=== PATIENT | female | born 1990 | race Two or more races ===

== ENCOUNTER 2016-09-21 18:03 | Emergency (ER) | payer OTHER ==
--- NOTE | ~2016-09-21 | CT16 ---
[facility] A Service of [facility] RADIOLOGY TEXT RESULTS PATIENT: EDMUND RUSS LOCATION: [facility] : [birth year] UNIT #: [id number] AGE: [address]: Cristian Kwok MD SEX: F ORDER DR: [id number] [place] [id number] [facility]. [place], [place] [address] [id number] E MR#: [id number] Acc #: [id number] NAME: EDMUND RUSS : 1990 SEX: F STUDY DATE/TIME: 09/21/2016 22:45 UNIT: [facility] ROOM: STUDY DESCRIPTION: CT Angio Chest for PE Attending Physician: Cristian Kwok M.D. Ordering Physician: Amando Landers A.P.R.N. Primary Care Physician: Radha Salmon MEDICAL IMAGING REPORT This report is preliminary unless electronic signature is present EXAM CTA chest PE protocol INDICATION Shortness of air and chest pain for the past 2 days. PROCEDURE Contrast-enhanced CTA of the chest attention on opacification of pulmonary arteries. Coronal 3-D MIP sagittal reformatted images reconstructed submitted. This CT exam was performed with one or more of the following radiation dose reduction techniques: automatic exposure control, adjustment of mA and/or kV according to patient size, and iterative reconstruction. COMPARISON None. FINDINGS No evidence for pulmonary embolus or acute aortic injury. No adenopathy. No acute findings in the included upper abdomen. No dense consolidation. There are a few small areas of ground-glass opacity in the lung apices. An index region at the right apex measures 11 mm. No pleural fluid or pneumothorax. No aggressive-appearing bone lesion. IMPRESSION 1. No evidence for pulmonary embolus. 2. A few small areas of ground-glass opacity in both lung apices probably representing infectious or inflammatory change. Consider attention on a short-interval followup after appropriate therapy to document improvement. [facility] A Service of [facility] RADIOLOGY TEXT RESULTS PATIENT: EDMUND RUSS LOCATION: [facility] : [birth year] UNIT #: [id number] AGE: [address]: Cristian Kwok MD SEX: F ORDER DR: Dictated by... Melecio Pretty M.D. THIS IS AN ELECTRONICALLY VERIFIED REPORT Melecio Pretty M.D. at 09/22/2016 10:24 PM EED/haile TD: 09/22/2016 00:56 JOB #: [id number] MEDICAL IMAGING REPORT Page 1 of 1 COPY
--- NOTE | ~2016-09-21 | EKG ---
PATIENT: EDMUND RUSS UNIT #: [id number] Ventricular Rate: 71 BPM Atrial Rate: 71 BPM P-R Interval: 142 ms QRS Duration: 80 ms Q-T Interval: 400 ms QTC Calculation(Bezet): 434 ms P [place]: 51 degrees Calculated R [place]: 47 degrees Calculated T [place]: 40 degrees Diagnosis Line: Normal sinus rhythm with sinus arrhythmia Diagnosis Line: Normal ECG Diagnosis Line: No previous ECGs available Diagnosis Line: Confirmed by ALLAN ROLAND MD ([id number]) on Diagnosis Line: 09/22/2016 10:39:41 PM INTERPRETING MD: BRODY
--- NOTE | ~2016-09-21 | CR72 ---
[facility] A Service of [facility] RADIOLOGY TEXT RESULTS PATIENT: EDMUND RUSS LOCATION: [facility] : [birth year] UNIT #: [id number] AGE: [address]: Cristian Kwok MD SEX: F ORDER DR: [id number] [facility] [address]. [place], [place] [address] [id number] E MR#: [id number] Acc #: [id number] NAME: EDMUND RUSS : 1990 SEX: F STUDY DATE/TIME: 09/21/2016 21:40 UNIT: [facility] ROOM: STUDY DESCRIPTION: CR Chest Single View Portable Attending Physician: Cristian Kwok M.D. Ordering Physician: Amando Landers A.P.R.N. Primary Care Physician: Radha Salmon MEDICAL IMAGING REPORT This report is preliminary unless electronic signature is present EXAM Portable chest, 09/21/2016 HISTORY 25-year-old female with shortness of air and left-sided chest pain for 2-3 days. Five weeks . COMPARISON Chest 10/18/2015 FINDINGS 2 frontal views of the chest demonstrate clear lungs. No pleural effusion or pneumothorax. Mild cardiomegaly. Mediastinum and pulmonary vasculature unremarkable. IMPRESSION Mild cardiomegaly. No other acute chest findings. Dictated by... Amando Garcia M.D. THIS IS AN ELECTRONICALLY VERIFIED REPORT Amando Garcia M.D. at 09/22/2016 6:16 PM Wong TD: 09/22/2016 00:07 JOB #: [id number] MEDICAL IMAGING REPORT Page 1 of 1 COPY
[2016-09-21 19:42] LABS: BASOPHIL# 0.1 X10e3 (0-0.3); BASOPHIL% 0.9 % (0-2.5); DIFF IND NO; EOSINOPHIL# 0.6 X10e3 (0-0.7); EOSINOPHIL% 10.6 % (0.0-7.0); HEMATOCRIT 35.4 % (35.0-45.0); HEMOGLOBIN 11.5 gm/dL (12.0-16.0); LYMPHOCYTE# 2.7 X10e3 (1.0-3.5); LYMPHOCYTE% 46.6 % (17.0-45.0); MEAN CELL VOLUME 91.7 FL (83-96); MEAN CORPUSCULAR HEMOGLOBIN 29.7 PG (28-34); MEAN CORPUSCULAR HGB CONC 32.4 g/dL (30-36); MEAN PLATELET VOLUME 11.2 FL (6.5-11.5); MONOCYTE# 0.6 X10e3 (0-1.0); MONOCYTE% 9.7 % (3.0-12.0); NEUTROPHIL# 1.9 X10e3 (1.5-7.1); NEUTROPHIL% 32.2 % (40-75); PLATELET COUNT 163 X10e3 (140-420); RED BLOOD COUNT 3.87 X10e (3.90-5.30); RED CELL DISTRIBUTION WIDTH 14.6 % (11.0-15.5); WHITE BLOOD COUNT 5.9 X10e3 (4.0-10.5)
[2016-09-21 20:00] LABS: POC - CKMB <1.0 ng/mL (0.0-7.9); POC - TROPONIN <0.05 ng/mL (<=0.05)
[2016-09-21 20:07] LABS: BILIRUBIN,TOTAL 0.4 mg/dL (0.2-2.0); BUN/CREATININE RATIO 18.75; CALCIUM SERUM 9.6 mg/dL (8.4-10.2); CREATININE SERUM 0.8 mg/dL (0.6-1.4); GLOM FILT RATE Estimated 101.1 mL/min (>60); POTASSIUM 3.9 mmol/L (3.5-5.1); PROTEIN TOTAL SERUM 7.4 g/dL (6.0-8.3)
[2016-09-21 20:47] LABS: URINE SOURCE CLEAN CATCH
[2016-09-21 20:53] LABS: URINE APPEARANCE CLEAR; URINE BILIRUBIN NEG (NEG); URINE BLOOD NEG (NEG); URINE COLOR YELLOW; URINE GLUCOSE NEG (NEG); URINE KETONE NEG (NEG); URINE LEUKOCYTE ESTERASE TRACE (NEG); URINE NITRATE NEG (NEG); URINE PROTEIN NEG (NEG); URINE UROBILINOGEN 0.2 MG/DL (NEG)
[2016-09-21 20:54] LABS: CULTURE INDICATED? YES; U HYALINE CASTS AUWI 0-2 /[LPF]; URBCS1 AUWI 0-2 /[HPF] (0-2); URINE BACTERIA AUWI 1+ (NEGATIVE); URINE SQUAMOUS EPITHELIAL CELL FEW /[HPF]
== END 2016-09-21 23:39 | disposition home or self-care (01) ==
LOC: CED 18:03
PROVIDERS: Nurse Practitioner
DX: R07.9 Chest pain, unspecified (principal)
CPT/HCPCS: 36415; 71010; 71275; 80053; 81003; 82553; 84484; 84703; 85025; 87086; 93005; 96361; 96374; 99285; J1885; Q9967